=== PATIENT | female | born 1990 | race Caucasian/White ===

== ENCOUNTER 2023-05-12 09:50 | Emergency (ER) | payer SELFPAY ==
[2023-05-12 09:52] VITALS: BP 128/80
--- NOTE | 2023-05-12 10:09 | ED.GENMED ---
History of Present Illness
General
Chief Complaint: Head Injury
Source: patient
Exam Limitations: none
Time Seen by Provider: 05/12/23 09:57
Nursing documentation reviewed up to this point in time: agreed with
Travel History
Have you had any contact with someone who has COVID-19?: No
Do you have any symptoms of coronavirus? Fever > 100 degrees, chills, cough, shortness of breath, sore throat, loss of taste or smell, muscle aches, or headache?: No
History of Present Illness
History of Present Illness:
32-year-old female works at [employer] she stood up was moving some merchandise hit her head on a bar just prior to arrival she was dazed no loss of consciousness no headache no nausea vomiting not intoxicated no blood thinners some mild right-sided
headache took some Motrin
Past History
Past History
ED Past Medical History: None
Social History
Tobacco: Non-smoker
Alcohol: None
Drug: None
Living: with family
Employment: Employed
Review of Systems
Review of Systems
All Other Systems: Not applicable
Cardiac: Denies syncope
ABD/GI: Reports no symptoms
Musculoskeletal: Denies neck pain
Neurological: Reports headache
Endocrine: Reports no symptoms
Phy Exam
Physical Exam
Physical Exam:
Physical Exam
General: no apparent distress, not acutely ill
Neck: No posterior neck pain no Sevilla sign no hemotympanums
Heart: s1/s2 regular rate and rhythm, no murmur. equal radial pulses.
Lungs: no acute respiratory distress.
Neuro: alert and oriented. no focal neurological deficits
Skin: no rash
Psychiatric: well kept. interactive and cooperative
Extremities: no edema.
Course
Vital Signs
Initial and Last Documented VS:
Initial Vital Signs
Temp Pulse Resp BP Pulse Ox
98.9 F 71 18 128/80 100
05/12/23 09:52 05/12/23 09:52 05/12/23 09:52 05/12/23 09:52 05/12/23 09:52
Last Documented Vital Signs
Temp Pulse Resp BP Pulse Ox
98.9 F 71 18 128/80 100
05/12/23 09:52 05/12/23 09:52 05/12/23 09:52 05/12/23 09:52 05/12/23 09:52
MDM/Problems Addressed
Differential Diagnosis Includes:
Head injury contusion concussion very low clinical suspicion for skull fracture or subdural epidural hematoma
*Pulse Oximetry
Patient hypoxic: no
*Critical Care Note
Total Time (30-74mins, 75-104mins- exclusive of procedures): Not Applicable
Update Note
Update Note:
Patient in no acute distress overall low risk mechanism
ED Attending Note
-
Portions of this chart may have been created with voice recognition software.� Occasional wrong word or��sound alike� substitutions may have occurred due to the inherent limitations of voice recognition software.
Discharge Plan
Departure
Patient Disposition: Home (Routine Discharge)
Date of Disposition: 05/12/23
Time of Disposition: 10:12
Patient with high blood pressure during this ER visit?: No
Condition: Fair
Covid-19: Not Applicable
Discharge Problem:
Head injury
Instructions: Concussion, Adult (DC)
Prescriptions:
New
ibuprofen 600 mg tablet
600 mg PO Q8H PRN (Reason: Pain) Qty: 20 0RF
Interventions
Interventions:
*ED COVID-19 Vaccine History Last Done: 05/12/23 09:53
[2023-05-12] MEDS: TYLENOL 650 MG PO (10:26)
== END 2023-05-12 10:31 | disposition home or self-care (01) ==
LOC: EMR 09:50
PROVIDERS: EMERGENCY PHYSICIAN Emergency Medicine; FAMILY PHYSICIAN Physician Assistant Medical
DX: S09.90XA Unspecified injury of head, initial encounter (principal); W22.8XXA Striking against or struck by other objects, initial encounter; Y99.0 Civilian activity done for income or pay
CPT/HCPCS: 99282